=== PATIENT | female | born 1945 | race Caucasian/White ===

== ENCOUNTER 2017-01-18 12:32 | Emergency (ER) | payer OTHER ==
[2017-01-18 12:52] VITALS: BP 160/80; PULSE 76; RESP 16; TEMP 97.9; O2SAT 99
[2017-01-18 12:58] LABS: COLOR ORANGE
[2017-01-18 13:12] LABS: BACTERIA 2+ /hpf (NONE SEEN); RBC,URINE 25-50 /hpf (0-3); WBC,URINE 25-50 /hpf (0-3)
--- NOTE | 2017-01-18 13:53 | UCPHY ---
H & P Time Seen by Provider: 01/18/17 13:23 Patient Type: New HPI/ROS: 71-year-old female presents complaining of frequent and painful urination for the last 2-3 days. No fevers no chills no nausea vomiting diarrhea no flank pain. Review of systems As per HPI General no fever no chills no weakness HEENT no eye pain no eye discharge. No eye redness, no sore throat Respiratory no cough, no shortness of breath Cardiac no chest pain, no peripheral edema GI no abdominal pain, no diarrhea, no constipation, no nausea, no vomiting no flank pain, no hematuria, positive dysuria Musculoskeletal no myalgias, no joint pain Heme no easy bruising, no easy bleeding Endo no polyuria, no polydipsia Skin no rashes, no pruritus Neuro no syncope, no dizziness, no headaches Psych is no suicidal ideation, no homicidal ideation Past Medical/Surgical History: Hypertension Social History: Denies excessive alcohol or drug use Smoking Status: Never smoked Physical Exam: [age] year old Female alert and oriented in no acute distress nontoxic appearance, afebrile Atraumatic normocephalic Neck supple Lungs clear to auscultation bilaterally Heart regular rate and rhythm Abdomen normoactive bowel sounds soft mild suprapubic tenderness no guarding no rebound Back no CVA tenderness Extremities no cyanosis clubbing or edema Skin no rash Constitutional: Initial Vital Signs Temperature (C) 36.6 C 01/18/17 12:45 Heart Rate 76 01/18/17 12:45 Respiratory Rate 16 01/18/17 12:45 Blood Pressure 160/80 H 01/18/17 12:45 O2 Sat (%) 99 01/18/17 12:45 O2 Delivery Mode Room Air Allergies/Adverse Reactions: Penicillins Allergy (Unverified 01/18/17 12:54) Home Medications: Medication Instructions Recorded Cephalexin 500 mg PO TID #21 tablet 01/18/17 Losartan-Hctz 100-25 mg Tab 01/18/17 Steroid Eye Drops 01/18/17 Medical Decision Making ED Course/Re-evaluation: Patient seen and evaluated for frequent and painful urination for 2-3 days Differential diagnosis considered Urinary tract infection Impression UTI Plan Cephalexin 500 three times daily x7 days Follow-up with PCP Culture pending - Data Points Laboratory Results: 01/18/17 12:45 Urine Color ORANGE Urine Appearance HAZY Urine pH 7.0 (5.0-7.5) Ur Specific [place] 1.010 (1.002-1.030) Urine Protein TRACE H (NEGATIVE) Urine Ketones NEGATIVE (NEGATIVE) Urine Blood NOT REPORTED (NEGATIVE) Urine Nitrate NOT REPORTED (NEGATIVE) Urine Bilirubin NEGATIVE (NEGATIVE) Urine Urobilinogen NOT REPORTED EU EU (0.2-1.0) Ur Leukocyte Esterase NOT REPORTED (NEGATIVE) Urine RBC 25-50 /hpf H /hpf (0-3) Urine WBC 25-50 /hpf H /hpf (0-3) Ur Epithelial Cells TRACE /lpf /lpf (NONE-1+) Urine Bacteria 2+ /hpf H /hpf (NONE SEEN) Ur Culture Indicated? INDICATED H (NI) Urine Glucose NOT REPORTED (NEGATIVE) Departure - Departure Disposition: Home, Routine, Self-Care Clinical Impression: Urinary tract infection Condition: Good Instructions: Urinary Tract Infection in Women (ED) Referrals: Kaylee Alvarado [Primary Care Provider] - As per Instructions Prescriptions: Cephalexin 500 mg PO TID #21 tablet - PQRS PQRS Measurement: 1 134: Depression screening and followup, PRIME MD-PHQ2 (12 years and older) Over the last 2 weeks, how often have you been bothered by any of the following problems? 1. Feeling down, depressed, or hopeless? 2. Little interest or pleasure in doing things? Patient answered no to both 1 and 2 130: Documentation of medications. Reviewed all patient medications, doses, route and frequency. 226: Do you smoke? No. 47: 65 and older: Advanced care planning. Patient designates surrogate decision maker as spouse.. [Patient has advanced directive.] 51: 18 years old and older with diagnosis of COPD, spirometry performance. [Patient has no history of COPD 52: 18 years old and older with COPD and symptoms of COPD or FEV1<60% predicted prescribed a B Agonist. [Spirometry not performed; equipment not available.]
== END 2017-01-18 13:54 | disposition home or self-care (01) ==
LOC: CED 12:32
DX: N39.0 Urinary tract infection, site not specified (principal); I10 Essential (primary) hypertension
CPT/HCPCS: 81003-PO; 81015-PO; G0463-PO